=== PATIENT | male | born 1990 | race American Indian/Alaskan Native ===

== ENCOUNTER 2019-08-07 08:51 | Emergency (ER) | payer BC ==
[2019-08-07 09:32] VITALS: BP 180/130
[2019-08-07 10:28] LABS: Basophils % (Auto) 0.4 % (0.0-1.8); Eosinophils % (Auto) 0.4 % (0.0-4.3); Hematocrit 39.5 % (35.5-45.6); Hemoglobin 12.9 gm/dl (11.8-15.2); Lymphocytes # (Auto) 1.9 K/mm3 (1.2-5.4); Lymphocytes % (Auto) 31.1 % (13.4-35.0); Mean Corpuscular HGB Conc 33 % (32-34); Mean Corpuscular Volume 73 fl (84-94); Monocytes # (Auto) 0.4 K/mm3 (0.0-0.8); Monocytes % (Auto) 6.7 % (0.0-7.3); Platelet Count 345 K/mm3 (140-440); Red Blood Count 5.39 M/mm3 (3.65-5.03); Red Cell Distribution Width 15.8 % (13.2-15.2)
[2019-08-07] MEDS ORDERED: ONDANSETRON 4 MG ODT TAB PO STA (10:41)
--- NOTE | 2019-08-07 10:41 | Emergency Department Report ---
ED General Adult HPI - General Chief complaint: Medical Clearance Stated complaint: ANXIETY MEDICATION WITHDRAWLS Time Seen by Provider: 08/07/19 10:36 Source: patient, RN notes reviewed Mode of arrival: Ambulatory Limitations: No Limitations - History of Present Illness Initial comments: This is a 28-year-old gentleman. The patient is not known to this provider previously. He states that he has a history of anxiety, and ran out of his anxiety medicine, alprazolam, a few days ago. He reports that he feels like he is having withdrawals. His symptoms include nausea, but no vomiting, heart racing, but no pain, and anxiety. He makes no complaint of headache, neck pain, chest pain, abdominal pain and shortness of breath. He denies DVT and pulmonary embolism risk factors. He is asking to drink water at this time. -: Gradual Consistency: intermittent Improves with: none Worsens with: none - Related Data Previous Rx's Medication Instructions Recorded Last Taken Type Piedad Root [Piedad] 250 mg PO QID PRN #30 capsule 08/07/19 Unknown Rx Ondansetron [Zofran Odt] 4 mg PO Q8HR PRN #20 tab.rapdis 08/07/19 Unknown Rx Allergies Allergy/AdvReac Type Severity Reaction Status Date / Time No Known Allergies Allergy Unverified 08/07/19 08:52 ED Review of Systems ROS: Stated complaint: ANXIETY MEDICATION WITHDRAWLS Other details as noted in HPI Constitutional: denies: fever Eyes: denies: eye discharge ENT: denies: congestion Respiratory: denies: wheezing Cardiovascular: denies: syncope Gastrointestinal: nausea. denies: vomiting, diarrhea Neurological: denies: weakness Psychiatric: anxiety. denies: homicidal thoughts, suicidal thoughts ED Past Medical Hx - Past Medical History Previous Medical History?: Yes Hx Psychiatric Treatment: Yes (anxiety) Hx HIV: Yes - Surgical History Past Surgical History?: No - Social History Smoking Status: Never Smoker - Medications Home Medications: Home Medications Medication Instructions Recorded Confirmed Last Taken Type Piedad Root [Piedad] 250 mg PO QID PRN #30 capsule 08/07/19 Unknown Rx Ondansetron [Zofran Odt] 4 mg PO Q8HR PRN #20 tab.rapdis 08/07/19 Unknown Rx ED Physical Exam - General Limitations: No Limitations General appearance: alert, in no apparent distress - Head Head exam: Present: atraumatic, normocephalic - Eye Eye exam: Present: normal appearance, EOMI, other (visual acuity intact to finger counting, color perception, reading at a close distance). Absent: nystagmus - ENT ENT exam: Present: normal exam, normal orophraynx, mucous membranes moist, normal external ear exam - Neck Neck exam: Present: normal inspection, full ROM. Absent: tenderness, meningismus - Respiratory Respiratory exam: Present: normal lung sounds bilaterally. Absent: respiratory distress - Cardiovascular Cardiovascular Exam: Present: regular rate, normal rhythm, normal heart sounds. Absent: bradycardia, tachycardia, irregular rhythm, systolic murmur, diastolic murmur, rubs, gallop - GI/Abdominal GI/Abdominal exam: Present: soft. Absent: distended, tenderness, guarding, rebound, rigid, pulsatile mass - Rectal Rectal exam: Present: deferred - Extremities Exam Extremities exam: Present: normal inspection, full ROM, other (2+ pulses noted in the bilateral upper extremities. There is no long bony tenderness. Muscular compartments soft. The pelvis is stable.). Absent: calf tenderness - Back Exam Back exam: Present: normal inspection, full ROM. Absent: tenderness, CVA tenderness (R), CVA tenderness (L), paraspinal tenderness, vertebral tenderness - Neurological Exam Neurological exam: Present: alert, normal gait, other (there is no facial droop. The tongue is midline. Extraocular movements are intact bilaterally. Patient speaking in full complete sentences. Shoulder shrug is intact bilaterally. Hearing is grossly intact bilaterally. Visual acuity intact to finger counting and color perception at a close distance. 5/5 strength 4 extremities. Sensation intact to light touch in 4 extremities.). Absent: motor sensory deficit - Psychiatric Psychiatric exam: Present: normal affect, normal mood. Absent: homicidal ideation, suicidal ideation - Skin Skin exam: Present: warm, dry, intact, normal color. Absent: rash ED Course Vital Signs 08/07/19 09:31 Temperature 98.4 F Pulse Rate 76 Respiratory 17 Rate Blood Pressure 180/130 O2 Sat by Pulse 100 Oximetry ED Medical Decision Making - Lab Data Result diagrams: 08/07/19 10:14 08/07/19 10:14 Vital Signs 08/07/19 09:31 Temperature 98.4 F Pulse Rate 76 Respiratory 17 Rate Blood Pressure 180/130 O2 Sat by Pulse 100 Oximetry Lab Results 08/07/19 08/07/19 Range/Units 10:14 10:14 WBC 6.0 (4.5-11.0) K/mm3 RBC 5.39 H (3.65-5.03) M/mm3 Hgb 12.9 (11.8-15.2) gm/dl Hct 39.5 (35.5-45.6) % MCV 73 L (84-94) fl MCH 24 L (28-32) pg MCHC 33 (32-34) % RDW 15.8 H (13.2-15.2) % Plt Count 345 (140-440) K/mm3 Lymph % (Auto) 31.1 (13.4-35.0) % [place] % (Auto) 6.7 (0.0-7.3) % Eos % (Auto) 0.4 (0.0-4.3) % Baso % (Auto) 0.4 (0.0-1.8) % Lymph # 1.9 (1.2-5.4) K/mm3 [place] # 0.4 (0.0-0.8) K/mm3 Eos # 0.0 (0.0-0.4) K/mm3 Baso # 0.0 (0.0-0.1) K/mm3 Seg Neutrophils % 61.4 (40.0-70.0) % Seg Neutrophils # 3.7 (1.8-7.7) K/mm3 Sodium 137 (137-145) mmol/L Potassium 4.2 (3.6-5.0) mmol/L Chloride 94.5 L (98-107) mmol/L Carbon Dioxide 24 (22-30) mmol/L Anion Gap 23 mmol/L BUN 6 L (9-20) mg/dL Creatinine 0.9 (0.8-1.5) mg/dL Estimated GFR > 60 ml/min BUN/Creatinine Ratio 7 % Glucose 124 H (75-100) mg/dL Calcium 9.3 (8.4-10.2) mg/dL Total Bilirubin 1.30 H (0.1-1.2) mg/dL AST 79 H (5-40) units/L ALT 75 H (7-56) units/L Alkaline Phosphatase 104 (35-129) units/L Total Protein 8.3 H (6.3-8.2) g/dL Albumin 4.6 (3.9-5) g/dL Albumin/Globulin Ratio 1.2 % - EKG Data -: EKG Interpreted by Me EKG shows normal: sinus rhythm, axis, intervals, QRS complexes, ST-T waves - EKG Data When compared to previous EKG there are: previous EKG unavailable - Medical Decision Making Differential diagnosis, including not limited to: Bentyl days pain dependence, anxiety, general medical examination Assessment and plan: 28-year-old gentleman who complains of withdrawals and nausea and palpitations. He is afebrile with reassuring vital signs with the exception of elevated blood pressure. Upon initial evaluation is resting comfortably in his room, playing on a cellular phone without active vomiting. He tolerated liquid feeds without difficulty. Screening laboratory studies were sent prior to my initial evaluation, and are basically unremarkable for an emergent condition. Has nonspecific transaminitis which can be followed up by an outpatient primary care doctor. Patient counseled that we would not refill alprazolam at this time, but that he could follow-up with an outpatient primary care doctor or psychiatrist. However, we will give him prescription for nausea medicine. Given that patient reports that he's not had his medication for at least 3 days, with no reported of seizure, I think withdrawal seizure is very unlikely. The patient is clinically sober at this time, and does not meet 1013 criteria for involuntary hold criteria at this time. The patient is medically suitable to be discharged at this point time to follow- up as an outpatient. Critical care attestation.: If time is entered above; I have spent that time in minutes in the direct care of this critically ill patient, excluding procedure time. ED Disposition Clinical Impression: History of anxiety, Elevated blood pressure reading, Transaminitis Disposition: [id number] TO HOME OR SELFCARE Is pt being admited?: No Does the pt Need Aspirin: No Condition: Stable Additional Instructions: Take the nausea medication as needed and directed. Advance diet as tolerated. Avoid consumption of Motrin, ibuprofen, Naprosyn, Aleve. Patient should follow-up with the primary care doctor within the next month. Patient was found to have elevated blood pressure in the emergency room, and nonspecific slightly elevated liver function tests. Would recommend abstinence from alcohol. Patient should have blood pressure and liver function followed up by primary care doctor. Please return to the emergency room right away with william jimenez, worsened, different symptoms, or symptoms not present on the initial emergency room evaluation. Referrals: BASILIA ANTHONY MD [Referring] - 3-5 Days [facility] [Provider Group] - 3-5 Days [facility] [Provider Group] - 3-5 Days
[2019-08-07 10:58] LABS: Alanine Aminotransferase 75 units/L (7-56); Albumin 4.6 g/dL (3.9-5); BUN/Creatinine Ratio 7; Blood Urea Nitrogen 6 mg/dL (9-20); Calcium 9.3 mg/dL (8.4-10.2); Hemolysis Index 37
== END 2019-08-07 12:11 | disposition home or self-care (01) ==
LOC: ED 08:51
DX: R74.0 Nonspecific elevation of levels of transaminase and lactic acid dehydrogenase [LDH] (principal); F41.9 Anxiety disorder, unspecified; R03.0 Elevated blood-pressure reading, without diagnosis of hypertension
CPT/HCPCS: 36415; 80053; 85025; 93005; 93010; Q0162